=== PATIENT | female | born 1965 | race Caucasian/White ===

== ENCOUNTER 2017-05-27 11:29 | Outpatient (CLI) | payer MEDICAID, OTHER ==
[~2017-05-27 11:29] MED LIST: BACL10TA2 PO; IBUP-1984 PO; LEVA15HF4 INH; NICO-687 TOP; TRAM50TA2 PO
[2017-05-27 12:03] LABS: ALANINE AMINOTRANSFERASE 20 U/L (12-78); ALBUMIN 3.5 G/DL (3.4-5.0); ALBUMIN/GLOBULIN RATIO 0.9 (1.1-1.5); ALKALINE PHOSPHATASE 98 IU/L (46-116); ANION GAP 9 (8-16); ASPARTATE AMINO TRANSFERASE 16 U/L (10-37); BILIRUBIN,TOTAL 0.7 MG/DL (0.1-1.0); BLOOD UREA NITROGEN 12 MG/DL (7-18); BUN/CREATININE RATIO 13.2 (6.6-38.0); CALCIUM 8.9 MG/DL (8.5-10.1); CHLORIDE 105 MMOL/L (99-107); CHOLESTEROL 148 MG/DL (0-200); CREATININE 0.91 MG/DL (0.40-0.90); GLUCOSE 96 MG/DL (70-104); HDL CHOLESTEROL 50 MG/DL (35-60); LDL CHOLESTEROL 86 MG/DL (50-100); POTASSIUM 4.2 MMOL/L (3.5-5.1); SODIUM 141 MMOL/L (135-145); TOTAL PROTEIN 7.5 G/DL (6.4-8.2); TRIGLYCERIDES 104 MG/DL (20-135); eGFR 65 ML/MIN
== END 2017-05-27 23:59 | disposition home or self-care (01) ==
LOC: LAB 11:29
PROVIDERS: ATTEND Family Medicine
DX: E78.2 Mixed hyperlipidemia (principal); J45.909 Unspecified asthma, uncomplicated
CPT/HCPCS: 36415; 80053; 80061

== ENCOUNTER 2018-03-12 08:20 | Outpatient (CLI) | payer OTHER ==
[2018-03-12 09:39] LABS: BASOPHILS # (AUTO) 0.1 X10'3 (0-0.2); BASOPHILS % (AUTO) 0.6 % (0-1); EOSINOPHILS # (AUTO) 0.2 X10'3 (0-0.9); EOSINOPHILS % (AUTO) 2.1 % (0-6); HEMATOCRIT 34.7 % (35.0-45.0); HEMOGLOBIN 11.1 g/dl (12.0-16.0); LYMPHOCYTES # (AUTO) 2.9 X10'3 (1.1-4.8); LYMPHOCYTES % (AUTO) 29.4 % (21-51); MEAN CORPUSCULAR HEMOGLOBIN 23.9 PG (27.0-31.0); MEAN CORPUSCULAR HGB CONC 31.9 % (33.0-36.5); MEAN PLATELET VOLUME 8.6 FL (7.4-10.4); MONOCYTES # (AUTO) 0.6 X10'3 (0-0.9); MONOCYTES % (AUTO) 5.7 % (2-12); NEUTROPHILS # (AUTO) 6.2 X10'3 (1.8-7.7); NEUTROPHILS % (AUTO) 62.2 % (42-75); PLATELET COUNT 422 X10'3 (140-440); RED BLOOD COUNT 4.63 X10'6 (4.20-5.60); WHITE BLOOD COUNT 9.9 X10'3 (4.5-11.0)
[2018-03-12 10:02] LABS: ALANINE AMINOTRANSFERASE 24 U/L (12-78); ALBUMIN 3.4 G/DL (3.4-5.0); ALBUMIN/GLOBULIN RATIO 0.7 (1.1-1.5); ALKALINE PHOSPHATASE 132 IU/L (46-116); ANION GAP 11 (8-16); ASPARTATE AMINO TRANSFERASE 19 U/L (10-37); BILIRUBIN,TOTAL 0.5 MG/DL (0.1-1.0); BLOOD UREA NITROGEN 6 MG/DL (7-18); BUN/CREATININE RATIO 7.2 (6.6-38.0); C-REACTIVE PROTEIN 0.12 MG/DL (0.0-0.5); CALCIUM 8.4 MG/DL (8.5-10.1); CHLORIDE 101 MMOL/L (99-107); CHOL/HDL RATIO 2.9 (0.00-4.99); CHOLESTEROL 173 MG/DL (0-200); CREATINE KINASE 124 U/L (26-192); CREATININE 0.83 MG/DL (0.40-0.90); GLUCOSE 96 MG/DL (70-104); HDL CHOLESTEROL 59 MG/DL (35-60); LDL CHOLESTEROL 101 MG/DL (50-100); POTASSIUM 3.7 MMOL/L (3.5-5.1); SODIUM 140 MMOL/L (135-145); TOTAL CARBON DIOXIDE 28.1 MMOL/L (24-32); TOTAL PROTEIN 8.2 G/DL (6.4-8.2); TRIGLYCERIDES 83 MG/DL (20-135); eGFR 72 ML/MIN
== END 2018-03-12 23:59 | disposition home or self-care (01) ==
LOC: LAB 08:20
PROVIDERS: ATTEND Family Medicine
DX: E78.5 Hyperlipidemia, unspecified (principal); M79.641 Pain in right hand; M54.41 Lumbago with sciatica, right side; J45.909 Unspecified asthma, uncomplicated; Z87.891 Personal history of nicotine dependence
CPT/HCPCS: 36415; 80053; 80061; 82550; 85025; 85651; 86140

== ENCOUNTER 2018-09-18 09:00 | Outpatient (CLI) | payer OTHER | END 2018-09-18 23:59 | disposition home or self-care (01) | LOC: 64 CT 09:00 | PROVIDERS: ATTEND Family Medicine | DX: K57.30 Diverticulosis of large intestine without perforation or abscess without bleeding (principal); K42.9 Umbilical hernia without obstruction or gangrene; K44.9 Diaphragmatic hernia without obstruction or gangrene; R91.1 Solitary pulmonary nodule; I70.0 Atherosclerosis of aorta; M62.08 Separation of muscle (nontraumatic), other site; M48.07 Spinal stenosis, lumbosacral region; J45.909 Unspecified asthma, uncomplicated | CPT/HCPCS: 74176 ==

== ENCOUNTER 2018-12-17 10:05 | Emergency (ER) | payer OTHER ==
[~2018-12-17] VITALS: Ht 162.6 cm; Wt 85.0 kg
[2018-12-17] MEDS ORDERED: aspirin 325mg tablet PO ONE (10:30)
[2018-12-17 10:33] LABS: BASOPHILS # (AUTO) 0.1 X10'3 (0-0.2); BASOPHILS % (AUTO) 0.8 % (0-1); EOSINOPHILS # (AUTO) 0.1 X10'3 (0-0.9); EOSINOPHILS % (AUTO) 0.8 % (0-6); HEMATOCRIT 28.6 % (35.0-45.0); HEMOGLOBIN 9.6 g/dl (12.0-16.0); LYMPHOCYTES # (AUTO) 3.3 X10'3 (1.1-4.8); LYMPHOCYTES % (AUTO) 31.5 % (21-51); MEAN CORPUSCULAR HEMOGLOBIN 26.2 PG (27.0-31.0); MEAN CORPUSCULAR HGB CONC 33.6 g/dL (33.0-36.5); MEAN CORPUSCULAR VOLUME 78.2 FL (78-98); MEAN PLATELET VOLUME 7.5 FL (7.4-10.4); MONOCYTES # (AUTO) 0.6 X10'3 (0-0.9); MONOCYTES % (AUTO) 5.4 % (2-12); NEUTROPHILS # (AUTO) 6.4 X10'3 (1.8-7.7); NEUTROPHILS % (AUTO) 61.5 % (42-75); PLATELET COUNT 385 X10'3 (140-440); RED BLOOD COUNT 3.65 X10'6 (4.20-5.60); RED CELL DISTRIBUTION WIDTH 17.1 % (11.5-14.5); WHITE BLOOD COUNT 10.4 X10'3 (4.5-11.0)
[2018-12-17] MEDS: nitroGLYCERIN 0.4mg SUBLingual tab SL PRN ×3 (10:37→10:52)
[2018-12-17 10:49] LABS: ALANINE AMINOTRANSFERASE 25 U/L (12-78); ALBUMIN 3.1 G/DL (3.4-5.0); ALBUMIN/GLOBULIN RATIO 0.7 (1.1-1.5); ALKALINE PHOSPHATASE 106 IU/L (46-116); ANION GAP 10 (8-16); ASPARTATE AMINO TRANSFERASE 15 U/L (10-37); BILIRUBIN,TOTAL 0.4 MG/DL (0.1-1.0); BLOOD UREA NITROGEN 9 MG/DL (7-18); CALCIUM 8.2 MG/DL (8.5-10.1); CHLORIDE 106 MMOL/L (99-107); CREATININE 0.75 MG/DL (0.40-0.90); GLUCOSE 102 MG/DL (70-104); POTASSIUM 4.1 MMOL/L (3.5-5.1); SODIUM 141 MMOL/L (135-145); TOTAL CARBON DIOXIDE 25.2 MMOL/L (24-32); TOTAL PROTEIN 7.3 G/DL (6.4-8.2); eGFR 81 ML/MIN
[2018-12-17 10:52] LABS: PARTIAL THROMBOPLASTIN TIME 24 SECONDS (22-32)
[2018-12-17 14:00] VITALS: BP 132/71
== END 2018-12-17 14:01 | disposition home or self-care (01) ==
LOC: ER 10:06
DX: I10 Essential (primary) hypertension (principal); R07.89 Other chest pain; R06.02 Shortness of breath; R51 Headache; E78.00 Pure hypercholesterolemia, unspecified; Z90.49 Acquired absence of other specified parts of digestive tract; Z98.890 Other specified postprocedural states; Z79.899 Other long term (current) drug therapy
CPT/HCPCS: 36415; 71045; 80053; 84484; 85025; 85610; 85730; 93005; 99284

== ENCOUNTER 2019-01-08 11:54 | Outpatient (CLI) | payer OTHER | END 2019-01-08 23:59 | disposition home or self-care (01) | LOC: 64 CT 11:54 | PROVIDERS: ATTEND Family Medicine | DX: R91.8 Other nonspecific abnormal finding of lung field (principal) | CPT/HCPCS: 71046; 71250; 72050; 72052; 72148; 73030; 73050 ==

== ENCOUNTER 2019-01-08 11:55 | Outpatient (CLI) | payer OTHER | END 2019-01-08 23:59 | disposition home or self-care (01) | LOC: RAD 11:55 | PROVIDERS: ATTEND Pediatrics Sports Medicine | DX: M51.37 Other intervertebral disc degeneration, lumbosacral region (principal); M54.5 Low back pain | CPT/HCPCS: 71046; 71250; 72050; 72052; 72148; 73030; 73050 ==

== ENCOUNTER 2019-02-10 22:11 | Emergency (ER) | payer OTHER ==
[~2019-02-10] VITALS: Ht 162.6 cm; Wt 79.0 kg
[2019-02-10 22:18] VITALS: BP 140/73
[2019-02-10] MEDS ORDERED: ketorolac tromethamine 15mg/ml inj. IM ONE (23:05)
== END 2019-02-10 23:25 | disposition home or self-care (01) ==
LOC: ER 22:12
DX: S93.402A Sprain of unspecified ligament of left ankle, initial encounter (principal); E78.00 Pure hypercholesterolemia, unspecified; I10 Essential (primary) hypertension; Z90.49 Acquired absence of other specified parts of digestive tract; Z98.890 Other specified postprocedural states; Z79.899 Other long term (current) drug therapy; X58.XXXA Exposure to other specified factors, initial encounter; Y93.89 Activity, other specified; Y92.89 Other specified places as the place of occurrence of the external cause; Y99.9 Unspecified external cause status
CPT/HCPCS: 29515; 73610; 96372; 99283; J1885

== ENCOUNTER 2019-03-15 08:26 | Outpatient (CLI) | payer OTHER ==
[2019-03-15 09:36] LABS: BASOPHILS # (AUTO) 0.1 X10'3 (0-0.2); BASOPHILS % (AUTO) 0.7 % (0-1); EOSINOPHILS # (AUTO) 0.1 X10'3 (0-0.9); EOSINOPHILS % (AUTO) 0.9 % (0-6); HEMATOCRIT 32.4 % (35.0-45.0); HEMOGLOBIN 10.2 g/dl (12.0-16.0); LYMPHOCYTES # (AUTO) 3.7 X10'3 (1.1-4.8); LYMPHOCYTES % (AUTO) 34.1 % (21-51); MEAN CORPUSCULAR HEMOGLOBIN 22.6 PG (27.0-31.0); MEAN CORPUSCULAR HGB CONC 31.5 g/dL (33.0-36.5); MEAN CORPUSCULAR VOLUME 71.7 FL (78-98); MONOCYTES # (AUTO) 0.6 X10'3 (0-0.9); MONOCYTES % (AUTO) 5.9 % (2-12); NEUTROPHILS # (AUTO) 6.3 X10'3 (1.8-7.7); NEUTROPHILS % (AUTO) 58.4 % (42-75); PLATELET COUNT 417 X10'3 (140-440); RED BLOOD COUNT 4.52 X10'6 (4.20-5.60); RED CELL DISTRIBUTION WIDTH 20.1 % (11.5-14.5); WHITE BLOOD COUNT 10.7 X10'3 (4.5-11.0)
[2019-03-15 10:05] LABS: RHEUM FACTOR QUAL REFLEX TITER NEGATIVE (Neg)
[2019-03-15 10:11] LABS: ALANINE AMINOTRANSFERASE 19 U/L (12-78); ALBUMIN 3.5 G/DL (3.4-5.0); ALBUMIN/GLOBULIN RATIO 0.7 (1.1-1.5); ALKALINE PHOSPHATASE 122 IU/L (46-116); ANION GAP 8 (8-16); ASPARTATE AMINO TRANSFERASE 15 U/L (10-37); BILIRUBIN,TOTAL 0.3 MG/DL (0.1-1.0); BLOOD UREA NITROGEN 14 MG/DL (7-18); BUN/CREATININE RATIO 14.9 (6.6-38.0); C-REACTIVE PROTEIN 0.17 MG/DL (0.0-0.5); CALCIUM 8.7 MG/DL (8.5-10.1); CHLORIDE 103 MMOL/L (99-107); CHOL/HDL RATIO 3.4 (0.00-4.99); CHOLESTEROL 147 MG/DL (0-200); CREATINE KINASE 99 U/L (26-192); CREATININE 0.94 MG/DL (0.40-0.90); GLUCOSE 108 MG/DL (70-104); HDL CHOLESTEROL 43 MG/DL (35-60); LDL CHOLESTEROL 90 MG/DL (50-100); PHOSPHORUS 4.3 MG/DL (2.3-4.5); POTASSIUM 4.2 MMOL/L (3.5-5.1); SODIUM 140 MMOL/L (135-145); TOTAL CARBON DIOXIDE 28.6 MMOL/L (24-32); TOTAL PROTEIN 8.3 G/DL (6.4-8.2); TRIGLYCERIDES 80 MG/DL (20-135); eGFR 62 ML/MIN
[2019-03-15 10:46] LABS: LARGE PLATELETS FEW; PLATELET ESTIMATE NORMAL
[2019-03-15 10:47] LABS: ANISOCYTOSIS 3+; MICROCYTOSIS 1+
[2019-03-15 10:49] LABS: HYPOCHROMASIA 1+
[2019-03-16 08:10] LABS: HEPATITIS C ANTIBODY <0.1 s/co ratio (0.0-0.9)
== END 2019-03-15 23:59 | disposition home or self-care (01) ==
LOC: LAB 08:26
PROVIDERS: ATTEND Family Medicine
DX: M19.041 Primary osteoarthritis, right hand (principal); M25.511 Pain in right shoulder; R20.9 Unspecified disturbances of skin sensation; F32.9 Major depressive disorder, single episode, unspecified; M25.512 Pain in left shoulder; M19.042 Primary osteoarthritis, left hand; R00.2 Palpitations; E78.5 Hyperlipidemia, unspecified
CPT/HCPCS: 36415; 80053; 80061; 82330; 82550; 84100; 84439; 84443; 84550; 85025; 85651; 86140; 86430; 86617; 86803

== ENCOUNTER 2019-04-28 07:17 | Emergency (ER) | payer OTHER ==
[~2019-04-28] VITALS: Ht 162.6 cm; Wt 81.0 kg
[2019-04-28 07:21] VITALS: BP 132/78
[2019-04-28] MEDS ORDERED: ibuprofen tablet 400 MG TABLET PO ONE (07:50)
[2019-04-28] MEDS ORDERED: LIDOcaine 5% patch TP SCH (08:00)
== END 2019-04-28 08:47 | disposition home or self-care (01) ==
LOC: ER 07:18
DX: R07.89 Other chest pain (principal); R07.81 Pleurodynia; E78.00 Pure hypercholesterolemia, unspecified; I10 Essential (primary) hypertension; Z90.49 Acquired absence of other specified parts of digestive tract; Z98.890 Other specified postprocedural states; Z79.899 Other long term (current) drug therapy; X50.1XXA Overexertion from prolonged static or awkward postures, initial encounter; Y93.89 Activity, other specified; Y92.89 Other specified places as the place of occurrence of the external cause; Y99.8 Other external cause status
CPT/HCPCS: 71101; 99283

== ENCOUNTER 2019-12-30 12:48 | Emergency (ER) | payer OTHER ==
[~2019-12-30] VITALS: Ht 162.6 cm; Wt 77.3 kg
[2019-12-30 12:53] VITALS: BP 131/85
--- NOTE | 2019-12-30 14:23 | NUR ---
[facility] in [facility] - 12/30/19 at 1425 by [email or web address] Pt seen, assessed, treated, and discharged by provider prior to RN intervention.
== END 2019-12-30 14:27 | disposition home or self-care (01) ==
LOC: EEVIPCON 12:48 → ER 12:48
DX: S80.211A Abrasion, right knee, initial encounter (principal); M25.561 Pain in right knee; E78.00 Pure hypercholesterolemia, unspecified; I10 Essential (primary) hypertension; F17.200 Nicotine dependence, unspecified, uncomplicated; Z90.89 Acquired absence of other organs; Z98.890 Other specified postprocedural states; Z79.899 Other long term (current) drug therapy; X58.XXXA Exposure to other specified factors, initial encounter; Y93.89 Activity, other specified; Y92.89 Other specified places as the place of occurrence of the external cause; Y99.8 Other external cause status
CPT/HCPCS: 70450; 70486; 73564; 99285

== ENCOUNTER 2020-03-14 17:22 | Emergency (ER) | payer BC, OTHER ==
[~2020-03-14] VITALS: Ht 162.6 cm; Wt 75.7 kg
[2020-03-14 17:31] VITALS: BP 146/84
[2020-03-14] MEDS ORDERED: baclofen 10mg tablet PO PRN (17:45)
[2020-03-14] MEDS ORDERED: HYDROcodone/acetaminophen 5mg/325mg tablet PO ONE (17:45)
[2020-03-14] MEDS ORDERED: ketorolac trometh. 30mg/ml inj. IM ONE (17:45)
== END 2020-03-14 18:09 | disposition home or self-care (01) ==
LOC: ER 17:23
DX: S13.4XXA Sprain of ligaments of cervical spine, initial encounter (principal); R51.9 Headache, unspecified; M79.601 Pain in right arm; E78.00 Pure hypercholesterolemia, unspecified; E07.9 Disorder of thyroid, unspecified; Z98.890 Other specified postprocedural states; Z79.899 Other long term (current) drug therapy; V87.7XXA Person injured in collision between other specified motor vehicles (traffic), initial encounter; Y93.89 Activity, other specified; Y92.89 Other specified places as the place of occurrence of the external cause; Y99.8 Other external cause status
CPT/HCPCS: 72040; 96372; 99283; J1885

== ENCOUNTER 2020-07-07 08:15 | Outpatient (CLI) | payer BC ==
[2020-07-07 08:42] LABS: BASOPHILS # (AUTO) 0.1 X10'3 (0-0.2); BASOPHILS % (AUTO) 0.9 % (0-1); EOSINOPHILS # (AUTO) 0.1 X10'3 (0-0.9); EOSINOPHILS % (AUTO) 0.9 % (0-6); HEMOGLOBIN 11.6 g/dl (12.0-16.0); LYMPHOCYTES # (AUTO) 2.7 X10'3 (1.1-4.8); LYMPHOCYTES % (AUTO) 31.2 % (21-51); MEAN CORPUSCULAR HEMOGLOBIN 25.5 PG (27.0-31.0); MEAN CORPUSCULAR HGB CONC 32.3 g/dL (33.0-36.5); MEAN CORPUSCULAR VOLUME 78.9 FL (78-98); MEAN PLATELET VOLUME 8.6 FL (7.4-10.4); MONOCYTES # (AUTO) 0.5 X10'3 (0-0.9); NEUTROPHILS # (AUTO) 5.3 X10'3 (1.8-7.7); PLATELET COUNT 349 X10'3 (140-440); RED BLOOD COUNT 4.56 X10'6 (4.20-5.60); RED CELL DISTRIBUTION WIDTH 17.9 % (11.5-14.5); WHITE BLOOD COUNT 8.7 X10'3 (4.5-11.0)
[2020-07-07 09:13] LABS: ALANINE AMINOTRANSFERASE 16 U/L (12-78); ALBUMIN 3.5 G/DL (3.4-5.0); ALBUMIN/GLOBULIN RATIO 0.8 (1.1-1.5); ALKALINE PHOSPHATASE 104 IU/L (46-116); ASPARTATE AMINO TRANSFERASE 20 U/L (10-37); BILIRUBIN,TOTAL 0.3 MG/DL (0.1-1.0); BLOOD UREA NITROGEN 9 MG/DL (7-18); BUN/CREATININE RATIO 9.6 (6.6-38.0); CALCIUM 8.9 MG/DL (8.5-10.1); CHLORIDE 104 MMOL/L (99-107); CHOL/HDL RATIO 3.5 (0.00-4.99); CHOLESTEROL 176 MG/DL (0-200); CREATININE 0.94 MG/DL (0.40-0.90); FERRITIN 7 NG/ML (8-252); GLUCOSE 108 MG/DL (70-104); HDL CHOLESTEROL 50 MG/DL (35-60); LDL CHOLESTEROL 107 MG/DL (50-100); PHOSPHORUS 4.1 MG/DL (2.3-4.5); TOTAL CARBON DIOXIDE 26.2 MMOL/L (24-32); TOTAL PROTEIN 7.8 G/DL (6.4-8.2); TRIGLYCERIDES 77 MG/DL (20-135); eGFR 62 ML/MIN
[2020-07-07 09:15] LABS: ANION GAP 10 (8-16); C-REACTIVE PROTEIN < 0.05 MG/DL (0.0-0.5); POTASSIUM 4.6 MMOL/L (3.5-5.1); SODIUM 140 MMOL/L (135-145)
[2020-07-07 09:47] LABS: % IRON SATURATION 5 % (11-46); IRON 22 UG/DL (49-151); TOTAL IRON BINDING CAPACITY 420 UG/DL (259-388)
== END 2020-07-07 23:59 | disposition home or self-care (01) ==
LOC: VAS 08:15
PROVIDERS: ATTEND Family Medicine
DX: I87.8 Other specified disorders of veins (principal); E78.2 Mixed hyperlipidemia; D50.8 Other iron deficiency anemias; M79.641 Pain in right hand; R20.9 Unspecified disturbances of skin sensation; M54.2 Cervicalgia; G56.03 Carpal tunnel syndrome, bilateral upper limbs; M25.511 Pain in right shoulder; M25.512 Pain in left shoulder; M19.041 Primary osteoarthritis, right hand; M19.042 Primary osteoarthritis, left hand; L85.3 Xerosis cutis; N20.0 Calculus of kidney; F17.200 Nicotine dependence, unspecified, uncomplicated; K82.8 Other specified diseases of gallbladder; R16.0 Hepatomegaly, not elsewhere classified; G57.92 Unspecified mononeuropathy of left lower limb; R00.2 Palpitations; R25.2 Cramp and spasm; F32.9 Major depressive disorder, single episode, unspecified
CPT/HCPCS: 36415; 80053; 80061; 82728; 83540; 83550; 84100; 84439; 84443; 84466; 84550; 85025; 85651; 86140; 93970

== ENCOUNTER 2021-07-10 09:17 | Emergency (ER) | payer OTHER ==
[~2021-07-10] VITALS: Ht 162.6 cm; Wt 77.3 kg
[2021-07-10 09:19] VITALS: BP 135/85
== END 2021-07-10 09:27 | disposition home or self-care (01) ==
LOC: ER 09:17
DX: Z77.21 Contact with and (suspected) exposure to potentially hazardous body fluids (principal); E78.00 Pure hypercholesterolemia, unspecified; I10 Essential (primary) hypertension; Z87.81 Personal history of (healed) traumatic fracture; Z90.49 Acquired absence of other specified parts of digestive tract; Z98.891 History of uterine scar from previous surgery; Z91.030 Bee allergy status; Z91.048 Other nonmedicinal substance allergy status; Z79.899 Other long term (current) drug therapy
CPT/HCPCS: 99281

== ENCOUNTER 2021-08-30 05:11 | Emergency (ER) | payer BC, OTHER ==
[~2021-08-30] VITALS: Ht 162.6 cm; Wt 81.3 kg
[2021-08-30 05:41] VITALS: BP 118/67
[2021-08-30] MEDS ORDERED: albuterol 2.5 MG/3 ML nebule NEB ONE (08:20)
[2021-08-30] MEDS ORDERED: FLUT1DIS INH (10:19)
[2021-08-30] MEDS ORDERED: ALBU6.7H9 INH (10:35)
== END 2021-08-30 10:42 | disposition home or self-care (01) ==
LOC: EEVIPCON 05:12 → ER 05:12
DX: J20.9 Acute bronchitis, unspecified (principal); E78.00 Pure hypercholesterolemia, unspecified; I10 Essential (primary) hypertension; Z87.81 Personal history of (healed) traumatic fracture; Z91.030 Bee allergy status; Z20.822 Contact with and (suspected) exposure to COVID-19
CPT/HCPCS: 71045; 87502; 87503; 87635; 94640; 99284; C9803

== ENCOUNTER 2021-09-21 10:03 | Outpatient (CLI) | payer BC ==
[~2021-09-21 10:03] MED LIST changes: +ALBU6.7H9 INH; +FLUT1DIS INH
[2021-09-21 11:06] LABS: BASOPHILS # (AUTO) 0.1 X10'3 (0-0.2); BASOPHILS % (AUTO) 0.6 % (0-1); EOSINOPHILS # (AUTO) 0.1 X10'3 (0-0.9); EOSINOPHILS % (AUTO) 0.6 % (0-6); HEMATOCRIT 34.8 % (35.0-45.0); HEMOGLOBIN 11.2 g/dl (12.0-16.0); LYMPHOCYTES # (AUTO) 3.1 X10'3 (1.1-4.8); MEAN CORPUSCULAR HEMOGLOBIN 23.5 PG (27.0-31.0); MEAN CORPUSCULAR HGB CONC 32.2 g/dL (33.0-36.5); MEAN CORPUSCULAR VOLUME 72.8 FL (78-98); MEAN PLATELET VOLUME 8.1 FL (7.4-10.4); MONOCYTES # (AUTO) 0.6 X10'3 (0-0.9); MONOCYTES % (AUTO) 5.7 % (2-12); NEUTROPHILS # (AUTO) 6.6 X10'3 (1.8-7.7); NEUTROPHILS % (AUTO) 63.1 % (42-75); PLATELET COUNT 397 X10'3 (140-440); RED BLOOD COUNT 4.78 X10'6 (4.20-5.60); RED CELL DISTRIBUTION WIDTH 19.9 % (11.5-14.5); WHITE BLOOD COUNT 10.5 X10'3 (4.5-11.0)
[2021-09-21 11:31] LABS: ALANINE AMINOTRANSFERASE 17 U/L (12-78); ALBUMIN 3.5 G/DL (3.4-5.0); ALBUMIN/GLOBULIN RATIO 0.8 (1.1-1.5); ALKALINE PHOSPHATASE 101 IU/L (46-116); ANION GAP 12 (8-16); ASPARTATE AMINO TRANSFERASE 16 U/L (10-37); BILIRUBIN,TOTAL 0.4 MG/DL (0.1-1.0); BLOOD UREA NITROGEN 7 MG/DL (7-18); BUN/CREATININE RATIO 8.3 (6.6-38.0); C-REACTIVE PROTEIN 0.18 MG/DL (0.0-0.5); CALCIUM 8.7 MG/DL (8.5-10.1); CHLORIDE 103 MMOL/L (99-107); CHOL/HDL RATIO 4.3 (0.00-4.99); CHOLESTEROL 219 MG/DL (0-200); CREATININE 0.84 MG/DL (0.40-0.90); FERRITIN 8 NG/ML (8-252); GLUCOSE 112 MG/DL (70-104); HDL CHOLESTEROL 51 MG/DL (35-60); LDL CHOLESTEROL 138 MG/DL (50-100); PHOSPHORUS 3.5 MG/DL (2.3-4.5); POTASSIUM 3.9 MMOL/L (3.5-5.1); SODIUM 139 MMOL/L (135-145); TOTAL CARBON DIOXIDE 23.9 MMOL/L (24-32); TOTAL PROTEIN 8.1 G/DL (6.4-8.2); TRIGLYCERIDES 91 MG/DL (20-135); eGFR 70 ML/MIN
[2021-09-21 11:41] LABS: PLATELET ESTIMATE NORMAL
[2021-09-21 11:43] LABS: ANISOCYTOSIS 2+; BURR CELLS FEW; ELLIPTOCYTES FEW; HYPOCHROMASIA 1+; MICROCYTOSIS 1+
[2021-09-21 11:52] LABS: % IRON SATURATION 5 % (11-46); IRON 22 UG/DL (49-151); TOTAL IRON BINDING CAPACITY 449 UG/DL (259-388)
== END 2021-09-21 23:59 | disposition home or self-care (01) ==
LOC: LAB 10:03
PROVIDERS: ATTEND Family Medicine
DX: D50.8 Other iron deficiency anemias (principal); N20.0 Calculus of kidney; N18.1 Chronic kidney disease, stage 1; M89.49 Other hypertrophic osteoarthropathy, multiple sites; K82.8 Other specified diseases of gallbladder; R16.0 Hepatomegaly, not elsewhere classified; R20.9 Unspecified disturbances of skin sensation; M54.2 Cervicalgia; G56.03 Carpal tunnel syndrome, bilateral upper limbs; G57.92 Unspecified mononeuropathy of left lower limb; R25.2 Cramp and spasm; F32.9 Major depressive disorder, single episode, unspecified; E78.5 Hyperlipidemia, unspecified; K21.9 Gastro-esophageal reflux disease without esophagitis; R73.02 Impaired glucose tolerance (oral); F17.200 Nicotine dependence, unspecified, uncomplicated
CPT/HCPCS: 36415; 80053; 80061; 82043; 82306; 82570; 82607; 82728; 82746; 83540; 83550; 83970; 84100; 84439; 84443; 84466; 84550; 85008; 85025; 85651; 86140

== ENCOUNTER 2021-10-05 10:04 | Outpatient (CLI) | payer BC ==
[~2021-10-05] VITALS: Ht 182.9 cm; Wt 79.4 kg
[2021-10-05] MEDS ORDERED: albuterol 2.5 MG/3 ML nebule NEB ONE (11:15)
== END 2021-10-05 23:59 | disposition home or self-care (01) ==
LOC: RT 10:04
PROVIDERS: ATTEND Family Medicine
DX: J44.0 Chronic obstructive pulmonary disease with (acute) lower respiratory infection (principal); J20.9 Acute bronchitis, unspecified; R50.9 Fever, unspecified; F17.210 Nicotine dependence, cigarettes, uncomplicated; Z79.899 Other long term (current) drug therapy
CPT/HCPCS: 94060; 94727; 94729; 94760

== ENCOUNTER 2021-11-12 09:51 | Day surgery (SDC) | payer BC ==
[~2021-11-12] VITALS: Ht 162.6 cm; Wt 77.3 kg
[2021-11-12 10:10] VITALS: BP 121/75
[2021-11-12] MEDS ORDERED: MIDAZolam 1 MG/ML 5ML VIAL ONE (11:14)
[2021-11-12] MEDS ORDERED: fentaNYL/PF 50MCG/1 ML 2ML syringe ONE (11:14)
[2021-11-12 12:00] VITALS: BP 122/62
[2021-11-12 12:10] VITALS: BP 102/61
[2021-11-12 12:20] VITALS: BP 99/57
[2021-11-12] MEDS ORDERED: GABA300C PO (15:40)
[2021-11-12] MEDS ORDERED: ATOR10TA70 PO (15:40)
== END 2021-11-12 12:33 | disposition home or self-care (01) ==
LOC: GI LAB 09:51
PROVIDERS: ATTEND Internal Medicine Gastroenterology
DX: Z12.11 Encounter for screening for malignant neoplasm of colon (principal); D12.3 Benign neoplasm of transverse colon; D12.0 Benign neoplasm of cecum; K57.30 Diverticulosis of large intestine without perforation or abscess without bleeding; K64.8 Other hemorrhoids; J45.909 Unspecified asthma, uncomplicated; F17.210 Nicotine dependence, cigarettes, uncomplicated; Z79.899 Other long term (current) drug therapy; Z86.010 Personal history of colon polyps
CPT/HCPCS: 45380; 45385; 99152; C1773; J2250; J3010; J7030; Z7512; 99153; A4620

== ENCOUNTER 2021-11-16 06:45 | Day surgery (SDC) | payer BC ==
[2021-11-12 15:49] LABS: BASOPHILS # (AUTO) 0.1 X10'3 (0-0.2); BASOPHILS % (AUTO) 0.9 % (0-1); EOSINOPHILS # (AUTO) 0.1 X10'3 (0-0.9); EOSINOPHILS % (AUTO) 1.5 % (0-6); LYMPHOCYTES # (AUTO) 3.2 X10'3 (1.1-4.8); LYMPHOCYTES % (AUTO) 34.2 % (21-51); MEAN CORPUSCULAR HEMOGLOBIN 23.5 PG (27.0-31.0); MEAN CORPUSCULAR HGB CONC 32.2 g/dL (33.0-36.5); MEAN PLATELET VOLUME 7.6 FL (7.4-10.4); MONOCYTES # (AUTO) 0.8 X10'3 (0-0.9); MONOCYTES % (AUTO) 8.8 % (2-12); NEUTROPHILS # (AUTO) 5.2 X10'3 (1.8-7.7); NEUTROPHILS % (AUTO) 54.6 % (42-75); PRE OP HEMATOCRIT 34.7 % (35.0-45.0); PRE OP HEMOGLOBIN 11.2 g/dL (12.0-16.0); PRE OP PLATELET COUNT 410 X10'3 (140-440); RED BLOOD COUNT 4.75 X10'6 (4.20-5.60); RED CELL DISTRIBUTION WIDTH 19.7 % (11.5-14.5)
[2021-11-12 16:12] LABS: ALBUMIN 3.4 G/DL (3.4-5.0); ALBUMIN/GLOBULIN RATIO 0.8 (1.1-1.5); ALKALINE PHOSPHATASE 97 IU/L (46-116); BLOOD UREA NITROGEN 6 MG/DL (7-18); BUN/CREATININE RATIO 7.1 (6.6-38.0); CALCIUM 8.7 MG/DL (8.5-10.1); CHLORIDE 105 MMOL/L (99-107); CREATININE 0.85 MG/DL (0.40-0.90); PRE OP ALT 16 U/L (30-65); PRE OP ANION GAP 9 (8-16); PRE OP AST 16 U/L (10-37); PRE OP BILIRUB, TOTAL 0.4 MG/DL (0.0-1.0); PRE OP GLUCOSE 119 MG/DL (70-104); PRE OP POTASSIUM 3.7 MMOL/L (3.4-5.1); PRE OP SODIUM 140 MMOL/L (135-145); TOTAL CARBON DIOXIDE 26.2 MMOL/L (24-32); TOTAL PROTEIN 7.6 G/DL (6.4-8.2); eGFR 69 ML/MIN
[~2021-11-16] VITALS: Ht 162.6 cm; Wt 77.0 kg
[2021-11-16] VITALS (7 sets, daily range): BP systolic 85–115; BP diastolic 58–76
[~2021-11-16 06:45] MED LIST changes: +ATOR10TA70 PO; -FLUT1DIS INH; +GABA300C PO; -LEVA15HF4 INH; -NICO-687 TOP; +albuterol 2.5 MG/3 ML nebule NEB ONE; +ceFAZolin inj. 2,000 MG in dextrose 5%-water 100 ML IV ONE; +famotidine 20mg tablet PO ONE; +ringers solution, lactated 500 ML IV ONE
--- NOTE | 2021-11-16 07:25 | NUR ---
LR WONT SCAN
[2021-11-16] MEDS ORDERED: midazolam 1 mg/ML 2ml injection ONE (10:23)
[2021-11-16] MEDS ORDERED: fentaNYL/PF 50MCG/1 ML 2ML syringe ONE (10:23)
[2021-11-16] MEDS ORDERED: LIDOcaine 0.5% (5mg/ml) 50ml vial ONE (10:24)
[2021-11-16] MEDS ORDERED: ringers solution, lacted 1,000 ML IV SCH (10:30)
[2021-11-16] MEDS ORDERED: morphine 2 MG/ML inj. syringe IV PRN (10:30)
[2021-11-16] MEDS ORDERED: ondansetron/PF 4mg/2ml inj IV PRN (10:30)
[2021-11-16] MEDS ORDERED: proCHLORperazine 10 MG/2 ml inj IV PRN (10:30)
[2021-11-16] MEDS ORDERED: meperidine/PF 25mg/ml syringe IV PRN ×3 (10:30)
[2021-11-16] MEDS ORDERED: morphine 4 MG/ML inj SYRINge IV PRN (10:30)
[2021-11-16] MEDS ORDERED: BUPIVAcaine/PF 2.5mg/ml (0.25%) 10ml vial IJ ONE (10:52)
--- NOTE | 2021-11-16 11:05 | NUR ---
Received from OR via JACK , accompanied by Anesthesiologist MEDARDO and report given by Anesthesiolgist. PATIENT WITH SPLINT TO RIGHT WRIST THAT IS CDI. FINGERS WITH + CAP REFILL. NO DRAINAGE PRESENT. Addendum: 11/16/21 at 1117 by Shahbaz Hernadez RN, RN Amended: Links added.
--- NOTE | 2021-11-16 12:05 | NUR ---
ALL DISCHARGE CRITERIA HAS BEEN MET. VSS, PAIN AT A TOLERABLE LEVEL, VOIDING AND ABLE TO SAFELY AMBULATE AND TRANSFER SELF. IV TAKEN OUT WITHOUT ANY COMPLICATIONS. ALL DISCHARGE INSTRUCTIONS COVERED WITH PATIENT AND ALL QUESTIONS ANSWERED. PATIENT TAKEN OUT VIA WHEELCHAIR TO PERSONAL VEHICLE WHERE FAMILY/FRIEND DROVE PATIENT HOME Addendum: 11/16/21 at 1211 by Shahbaz Hernadez RN, RN Amended: Links added.
== END 2021-11-16 12:05 | disposition home or self-care (01) ==
LOC: PAS 06:45
PROVIDERS: ATTEND Orthopaedic Surgery Hand Surgery
DX: G56.01 Carpal tunnel syndrome, right upper limb (principal); M65.331 Trigger finger, right middle finger; F17.210 Nicotine dependence, cigarettes, uncomplicated; D64.9 Anemia, unspecified; Z79.899 Other long term (current) drug therapy; Z98.890 Other specified postprocedural states
CPT/HCPCS: 26055; 29848; 36415; 80053; 82948; 85025; 93005; A6222; J0690; J2250; J3010; J3490; J7030; J7060; J7120; Z7506; Z7512; A4215; A6449; A7000

== ENCOUNTER 2021-12-14 05:48 | Day surgery (SDC) | payer BC ==
[2021-12-07 11:07] LABS: BASOPHILS # (AUTO) 0.1 X10'3 (0-0.2); BASOPHILS % (AUTO) 0.9 % (0-1); EOSINOPHILS % (AUTO) 0.1 % (0-6); LYMPHOCYTES # (AUTO) 2.9 X10'3 (1.1-4.8); LYMPHOCYTES % (AUTO) 32.2 % (21-51); MEAN CORPUSCULAR HGB CONC 32.8 g/dL (33.0-36.5); MEAN CORPUSCULAR VOLUME 73.2 FL (78-98); MONOCYTES # (AUTO) 0.7 X10'3 (0-0.9); NEUTROPHILS # (AUTO) 5.2 X10'3 (1.8-7.7); NEUTROPHILS % (AUTO) 58.8 % (42-75); PRE OP HEMATOCRIT 33.4 % (35.0-45.0); PRE OP PLATELET COUNT 358 X10'3 (140-440); RED BLOOD COUNT 4.57 X10'6 (4.20-5.60); RED CELL DISTRIBUTION WIDTH 20.4 % (11.5-14.5)
[2021-12-07 11:25] LABS: ALBUMIN 3.3 G/DL (3.4-5.0); ALBUMIN/GLOBULIN RATIO 0.7 (1.1-1.5); ALKALINE PHOSPHATASE 104 IU/L (46-116); BLOOD UREA NITROGEN 13 MG/DL (7-18); BUN/CREATININE RATIO 15.7 (6.6-38.0); CALCIUM 8.8 MG/DL (8.5-10.1); CHLORIDE 105 MMOL/L (99-107); CREATININE 0.83 MG/DL (0.40-0.90); PRE OP ALT 17 U/L (30-65); PRE OP ANION GAP 8 (8-16); PRE OP AST 14 U/L (10-37); PRE OP BILIRUB, TOTAL 0.6 MG/DL (0.0-1.0); PRE OP GLUCOSE 76 MG/DL (70-104); PRE OP SODIUM 139 MMOL/L (135-145); TOTAL CARBON DIOXIDE 25.6 MMOL/L (24-32); TOTAL PROTEIN 7.9 G/DL (6.4-8.2); eGFR 71 ML/MIN
[2021-12-07 13:18] LABS: PLATELET ESTIMATE NORMAL
[2021-12-07 13:19] LABS: ANISOCYTOSIS 3+; ELLIPTOCYTES 1+; HYPOCHROMASIA 1+; MICROCYTOSIS 1+
[~2021-12-14] VITALS: Ht 162.6 cm; Wt 75.0 kg
[2021-12-14] VITALS (11 sets, daily range): BP systolic 97–131; BP diastolic 54–78
[~2021-12-14 05:48] MED LIST changes: +CEFAZOLIN IV ONE; +DEXTROSE 5% IV ONE; -IBUP-1984 PO; +WATER IV ONE; -albuterol 2.5 MG/3 ML nebule NEB ONE; -ceFAZolin inj. 2,000 MG in dextrose 5%-water 100 ML IV ONE; -ringers solution, lactated 500 ML IV ONE; +ringers solution, lacted 1,000 ML IV SCH; +ringers solution, lacted 500 ML IV SCH
[2021-12-14] MEDS ORDERED: ringers solution, lacted 1,000 ML IV SCH (07:20)
[2021-12-14] MEDS ORDERED: fentaNYL/PF 50MCG/1 ML 2ML syringe IV PRN ×2 (07:20)
[2021-12-14] MEDS ORDERED: hydrALAZINE 20mg/ml inj. IV PRN (07:20)
[2021-12-14] MEDS ORDERED: labetalol 20mg/4ml (5mg/ml) syringe IV PRN (07:20)
[2021-12-14] MEDS ORDERED: morphine 2 MG/ML inj. syringe IV PRN (07:20)
[2021-12-14] MEDS ORDERED: morphine 4 MG/ML inj SYRINge IV PRN (07:20)
[2021-12-14] MEDS ORDERED: ondansetron/PF 4mg/2ml inj IV PRN (07:20)
[2021-12-14] MEDS ORDERED: fentaNYL/PF 50MCG/1 ML 2ML syringe ONE (07:24)
[2021-12-14] MEDS ORDERED: MIDAZolam 1 MG/ML 5ML VIAL ONE (07:25)
[2021-12-14] MEDS ORDERED: LIDOcaine 0.5% (5mg/ml) 50ml vial ONE (07:27)
[2021-12-14] MEDS ORDERED: BUPIVAcaine/PF 2.5mg/ml (0.25%) 10ml vial IJ ONE (08:04)
--- NOTE | 2021-12-14 08:13 | NUR ---
Received from OR via JACK , accompanied by Anesthesiologist DR JONES and report given by Anesthesiolgist. PT PRESNTS WITH PIV 20G RIGHT WRIST, DRSSING ON LEFT HAND CDI. VSS. Addendum: 12/14/21 at 1105 by Angelia Hernadez RN, RN Amended: Links added.
[2021-12-14] MEDS ORDERED: HYDROcodone/acetaminophen 5mg/325mg tablet PO ONE (09:20)
--- NOTE | 2021-12-14 09:33 | NUR ---
DC INTRUCTIONS REVIEWED WITH PT, IV DC'D WITH CANNULA INTACT. PT HAS NO FIURTHER QUESTIONS AT THIS TIME. PT WHEELED OUT TO DAUGHTER'S CAR WHO DROVE PT HOME. Addendum: 12/14/21 at 0945 by Angelia Hernadez RN, RN Amended: Links added.
== END 2021-12-14 09:33 | disposition home or self-care (01) ==
LOC: PAS 05:48
PROVIDERS: ATTEND Orthopaedic Surgery Hand Surgery
DX: G56.02 Carpal tunnel syndrome, left upper limb (principal); M65.312 Trigger thumb, left thumb; M65.332 Trigger finger, left middle finger; E78.5 Hyperlipidemia, unspecified; Z79.899 Other long term (current) drug therapy; G89.29 Other chronic pain; Z98.890 Other specified postprocedural states; F17.210 Nicotine dependence, cigarettes, uncomplicated; Z88.8 Allergy status to other drugs, medicaments and biological substances; M54.9 Dorsalgia, unspecified
CPT/HCPCS: 26055; 29848; 36415; 80053; 82948; 85025; J0690; J2250; J3010; J3490; J7030; J7060; J7120; Z7506; Z7512; 85008; A4215; A6449; A7000